=== PATIENT | female | born 1945 | race Caucasian/White ===

== ENCOUNTER 2023-05-22 11:28 | Emergency (ER) | payer MEDICARE, BC ==
[~2023-05-22] VITALS: Ht 157.5 cm; Wt 55.8 kg
[2023-05-22 12:37] LABS: BASOPHILS % (AUTO) 0.6 % (0.0-2.0); EOSINOPHILS # (AUTO) 0.1 K/uL (0.0-0.7); EOSINOPHILS % (AUTO) 1.4 % (0.0-6.0); HEMATOCRIT 36 % (33-45); HEMOGLOBIN 12.1 g/dL (11.5-14.8); LYMPHOCYTES # (AUTO) 0.6 K/uL (0.8-4.8); LYMPHOCYTES % (AUTO) 9.7 % (20.0-44.0); MEAN CORPUSCULAR HEMOGLOBIN 36 PG (26.0-33.0); MEAN CORPUSCULAR HGB CONC 33 g/dl (31.0-36.0); MEAN CORPUSCULAR VOLUME 106 fL (82-100); MONOCYTES % (AUTO) 15.5 % (2.0-12.0); NEUTROPHILS # (AUTO) 4.6 K/uL (1.8-8.9); NEUTROPHILS % (AUTO) 72.8 % (43.0-81.0); PLATELET COUNT (AUTO) 232 K/uL (150-450); RED BLOOD CELL COUNT(AUTO) 3.41 MIL/uL (4.0-5.2); RED CELL DISTRIBUTION WIDTH 13.4 % (11.5-15.0); WHITE BLOOD COUNT (AUTO) 6.3 K/uL (4.3-11.0)
[2023-05-22 12:51] LABS: INR 0.91 (0.91-1.10); PARTIAL THROMBOPLASTIN TIME 26.3 SEC (24.3-34.3); PROTHROMBIN TIME 9.7 SECS (9.2-11.1)
[2023-05-22 12:54] LABS: CALCIUM, SERUM 9.4 mg/dL (8.5-10.1); CREATININE 0.8 mg/dL (0.6-1.3); POTASSIUM 4.3 mmol/L (3.5-5.1)
[2023-05-22 15:05] VITALS: BP 166/90; TEMP 98.3; O2SAT 99
== END 2023-05-22 14:30 | disposition home or self-care (01) ==
LOC: ER 11:28
DX: M79.601 Pain in right arm (principal); I10 Essential (primary) hypertension; E03.9 Hypothyroidism, unspecified
CPT/HCPCS: 36415; 73060-TC; 80048-TC; 85025-TC; 85730-TC; 93971-TC